=== PATIENT | female | born 1985 | race Caucasian/White ===

== ENCOUNTER 2020-10-21 17:50 | Emergency (ER) | payer OTHER ==
[2020-10-21 18:07] VITALS: BP 169/103
--- NOTE | 2020-10-21 18:13 | ED Physician Documentation ---
PD HPI Fall - Stated complaint Stated Complaint: FELL DOWN STAIRS/HEAD PX/LT LEG PX - Chief complaint Chief Complaint: Ext Problem - History obtained from History obtained from: Patient - History of Present Illness Mechanism of injury: Slipped Fall distance: Standing position Where injury occurred: Home (slipped on step and fell forward, stiking left knee on edge of step and left ankle on another, with some twist of ankle as well. Pain with ROM and with walking, but able to walk some.) Injury(ies) location: Left Lower Extremity. No: Head, Neck, Chest, Abdomen Associated symptoms: No: LOC, AMS, Nausea / vomiting Worsens with: Movement, Palpation Similar symptoms before: Has not had sx before Recently seen: Not recently seen Review of Systems Constitutional: denies: Fever Nose: denies: Rhinorrhea / runny nose, Congestion Throat: denies: Sore throat Respiratory: denies: Cough Skin: denies: Abrasion (s), Laceration (s) Musculoskeletal: denies: Neck pain, Back pain PD PAST MEDICAL HISTORY - Past Medical History Cardiovascular: None Respiratory: None Endocrine/Autoimmune: None - Past Surgical History Past Surgical History: No - Present Medications Home Medications: Ambulatory Orders Medication Instructions Recorded Confirmed Oxycodone HCl/Acetaminophen 1 each PO Q6H PRN #14 tablet 10/21/20 [Percocet 5-325 mg Tablet] - Allergies Allergies/Adverse Reactions: Allergies Allergy/AdvReac Type Severity Reaction Status Date / Time acetaminophen [From Vicodin] AdvReac Unknown Verified 10/21/20 18:07 hydrocodone bitartrate * AdvReac Unknown Verified 10/21/20 18:07 [From Vicodin] - Social History Does the pt smoke?: No Smoking Status: Never smoker Does the pt drink ETOH?: No Does the pt have substance abuse?: No PD ED PE NORMAL - Vitals Vital signs reviewed: Yes - General General: Alert and oriented X 3, No acute distress, Well developed/nourished - Back Back: No spinal TTP - Derm Derm: Normal color, Warm and dry - Extremities Extremities: Other (left knee with mild anterior effusion. NO noted deformity. Able to extend at knee but hurts. No noted laxity nor pain with collateral/cruciate testing. Left ankle tender laterally at malleolus and below. No effusion. ) - Neuro Neuro: Alert and oriented X 3, No motor deficit, No sensory deficit, Normal speech Results - Vitals Vitals: Vital Signs - 24 hr 10/21/20 17:57 Temperature 36.4 C L Heart Rate 90 Respiratory 16 Rate Blood Pressure 169/103 H O2 Saturation 99 Oxygen O2 Source Room air - Rads (name of study) left ankle Radiology: Prelim report reviewed (no osseous abnormality), See rad report left knee Radiology: Prelim report reviewed (no osseous abnormality), See rad report PD MEDICAL DECISION MAKING - ED course Complexity details: reviewed old records ([facility] due to ADHD meds. No regular opioids.), considered differential, d/w patient Departure - Departure Disposition: 01 Home, Self Care Clinical Impression: Knee effusion, left Fall from slip, trip, or stumble Qualifiers: Encounter type: initial encounter Qualified Code(s): W01.0XXA - Fall on same level from slipping, tripping and stumbling without subsequent striking against object, initial encounter Knee contusion Qualifiers: Encounter type: initial encounter Laterality: left Qualified Code(s): S80.02XA - Contusion of left knee, initial encounter Ankle sprain Qualifiers: Encounter type: initial encounter Involved ligament of ankle: unspecified ligament Laterality: left Qualified Code(s): S93.402A - Sprain of unspecified ligament of left ankle, initial encounter Condition: Stable Record reviewed to determine appropriate education?: Yes Instructions: ED Contusion Lower Ext, ED Sprain Ankle Follow-Up: Teodoro Loza DO [Primary Care Provider] - Prescriptions: Oxycodone HCl/Acetaminophen [Percocet 5-325 mg Tablet] 1 each PO Q6H PRN #14 tablet PRN Reason: pain Comments: Your x-rays appear normal without any signs of fractures of the knee or ankle. You do have the swelling in the knee from the contusion in this will likely take several days to decrease. Use the knee brace for support and limited range of motion for several days to week as needed. Use ankle brace as well in the similar timeframe. I do not feel there is any significant ligament injuries per se of the knee or ankle so he can discontinue the splint and brace when they are not feeling needed anymore. Use some ibuprofen 600 mg 3 times a day with food for the next several days to week. To that add Tylenol or pain medicine if needed. Recheck if not improved well over the next week timeframe. Discharge Date/Time: 10/21/20 20:02
[2020-10-21] MEDS ORDERED: oxyCODONE 5 MG TABLET PO STA (18:34)
--- NOTE | 2020-10-21 19:28 | XRAY Report ---
PROCEDURE: Ankle 3 View LT INDICATIONS: fell few steps - ankle/knee pain TECHNIQUE: 3 views of the ankle were acquired. COMPARISON: None. FINDINGS: Bones: No fractures or dislocations. Ankle mortise is normally aligned. No suspicious bony lesions . Calcaneal spurring. Soft tissues: No tibiotalar joint effusion. Achilles tendon appears normal. IMPRESSION: No acute osseous amenities. Reviewed by: Nereida Deshpande MD on 10/21/2020 7:27 PM PST Approved by: Nereida Deshpande MD on 10/21/2020 7:27 PM PST Station ID: [id number]
--- NOTE | 2020-10-21 19:29 | XRAY Report ---
PROCEDURE: Knee 3 View LT INDICATIONS: fell few steps - ankle/knee pain TECHNIQUE: 3 views of the left knee(s) were acquired. COMPARISON: None. FINDINGS: Bones: No fractures or dislocations. No suspicious bony lesions. Soft tissues: No joint effusion. No suspicious soft tissue calcifications. IMPRESSION: No acute osseous abnormalities. Reviewed by: Nereida Deshpande MD on 10/21/2020 7:28 PM PST Approved by: Nereida Deshpande MD on 10/21/2020 7:28 PM PST Station ID: [id number]
== END 2020-10-21 20:02 | disposition home or self-care (01) ==
LOC: ED 17:50
DX: S93.402A Sprain of unspecified ligament of left ankle, initial encounter (principal); S80.02XA Contusion of left knee, initial encounter; W10.9XXA Fall (on) (from) unspecified stairs and steps, initial encounter; Y93.01 Activity, walking, marching and hiking; Y92.009 Unspecified place in unspecified non-institutional (private) residence as the place of occurrence of the external cause
CPT/HCPCS: 73562; 73610; 99283; A9270

== ENCOUNTER 2021-01-08 11:50 | Outpatient (CLI) | payer OTHER ==
--- NOTE | 2021-01-08 13:03 | Ultrasound Report ---
PROCEDURE: Ext Limited Non Vascular INDICATIONS: BILAT KNEE PAIN - RICKETTS'S CYST TECHNIQUE: Real-time scanning was performed of the bilateral knees, with image documentation. COMPARISON: None. FINDINGS: Right knee: There is a small popliteal fossa region cyst measuring 10 x 6 x 7 mm. There is no left popliteal cyst. There is a small right knee joint effusion. IMPRESSION: 1. Small Ricketts's cyst, posterior right knee. 2. Small right knee joint effusion. 3. No left knee Ricketts's cyst noted. Reviewed by: Jared De La Rosa MD on 01/08/2021 12:02 PM [facility] Approved by: Jared De La Rosa MD on 01/08/2021 12:02 PM [facility] Station ID: [id number]
--- NOTE | 2021-01-08 13:04 | Ultrasound Report ---
PROCEDURE: Ext Limited Non Vascular INDICATIONS: BILAT KNEE PAIN - RICKETTS'S CYST TECHNIQUE: Real-time scanning was performed of the bilateral knees, with image documentation. COMPARISON: None. FINDINGS: Right knee: There is a small popliteal fossa region cyst measuring 10 x 6 x 7 mm. There is no left popliteal cyst. There is a small right knee joint effusion. IMPRESSION: 1. Small Ricketts's cyst, posterior right knee. 2. Small right knee joint effusion. 3. No left knee Ricketts's cyst noted. Reviewed by: Jared De La Rosa MD on 01/08/2021 12:02 PM [facility] Approved by: Jared De La Rosa MD on 01/08/2021 12:02 PM [facility] Station ID: [id number]
== END 2021-01-08 11:51 | disposition home or self-care (01) ==
LOC: DI 11:50
PROVIDERS: ATTEND Family Medicine
DX: M71.21 Synovial cyst of popliteal space [Baker], right knee (principal); M25.461 Effusion, right knee

== ENCOUNTER 2024-02-15 10:19 | Outpatient (CLI) | payer OTHER ==
--- NOTE | 2024-02-15 10:57 | Sleep Patient Instructions ---
Sleep Center Visit Summary - Patient Visit Information Reason for Visit: Initial consult for evaluation of sleep disordered breathing and other sleep issues. - Patient Instructions Instructions Attached: Sleep Study Home Monitor Additional Instructions: You will be completing a sleep study, either an in-lab polysomnography (PSG) or home sleep study (HST). You will follow-up in the sleep care office after the sleep study is completed to hear the results and talk about therapy, if needed. You will be called by our office staff to schedule this appointment, but you may contact us with any questions. - Clinic Information Contact: [facility] [address] [place] [address] [email or web address] T: [phone]
--- NOTE | 2024-02-15 10:58 | SLEEP CARE CONSULTATION ---
Information from patient questionnaire entered by Troy Montano. I have reviewed and concur with the information entered by Troy Montano. This document represents the service I personally performed and the decisions made by me, Cheri Posada ARNP. History of Present Illness Service Date and Time: 02/15/2024 1019 Reason for Visit: New patient Chief Complaint: reports: Insomnia, Unrefreshed sleep, Excessive daytime sleepiness, Fatigue Date of Onset: Several years Usual bedtime: 9 - 10 Time it takes to fall asleep: 30 - 45 mins Snores at night: Yes (sometimes, bob when congested) Observed to quit breathing while asleep: No Sleeps alone due to snoring: No Number of times waking at night: 2 - 3 times Reasons for waking at night: reports: Pain, Other (Unknown reason). denies: Choking, Gasping for air (has woke up short of breath associated with nightmares) Toss, Turn, or Twitch while sleeping: Yes Recalls having dreams: Yes (Sometimes) Usually gets out of bed at: 4 AM; 4-6 AM on weekends Feels refreshed in the morning: No Morning headache: Yes (5 days week; Usually resovles after taking tylenol about mid-morning) Sleepy or fatigued during the day: Yes Ever fallen asleep while driving: Yes (drowsy driving, no accidents) Takes day naps: Yes Dreams during day naps: No Prior sleep studies: No Additional HPI information: I had the pleasure of seeing BERNIE MOSCOSO today regarding the possibility of her having a sleep disorder. Her current complaints are unrefreshed sleep, insomnia, fatigue and excessive daytime sleepiness. Her primary recommended evaluation because of multiple family members who have sleep apnea. She has history of depression, hypertension, ADHD and anxiety. She says due to stress in her life in last 12 pounds she gained over a hundred pounds but has lost 45-50 pounds since starting with a new provider. She says she feels like she does not get into a deep sleep. She wakes up feeling exhausted. She will wake up with headaches and has been treated for migraines. She is taking OTC analgesics and the headaches will last until noon. She will fall asleep in car during her lunch period but wakes up more tired than before the nap. 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 Patient is and lives in [place]. Have you smoked in the past 12 months: No (Vape but not smoking cigarettes) Cigarettes per day (20/pack): 5 Years of smokin Quit date: 2008 Smoking Pack Years: 3.0 Alcohol use: Yes Alcohol amount and frequency: 1 glass every now and then Caffeine use: Yes Caffeine amount and frequency: 2 - 3 cups daily Family History Family history of sleep disordered breathing: Yes Family Hx Sleep Apnea: Father: Snoring, Sleep apnea - Treated (Uncles and aunts), Sibling: Snoring, Sleep apnea - Treated, Grandparent: Snoring, Sleep apnea - Treated, Other: Sleep apnea - Treated Allergies and Home Medications Known drug allergies: Yes (as listed) Drug allergies reviewed: Yes Home medication list reviewed: Yes (as listed) Allergy and home medication list: Allergies acetaminophen [From Vicodin] Adverse Reaction Unknown hydrocodone bitartrate * [From Vicodin] Adverse Reaction Unknown Home Medications Medication Instructions Recorded Confirmed Last Taken Type Kiki-D 12 Hour Tablet See Rx Instructions .ROUTE .COMPLEX 02/15/24 02/15/24 Unknown History Flonase See Rx Instructions .ROUTE .COMPLEX 02/15/24 02/15/24 Unknown History Multivitamin See Rx Instructions .ROUTE .COMPLEX 02/15/24 02/15/24 Unknown History Nasacort See Rx Instructions .ROUTE .COMPLEX 02/15/24 02/15/24 Unknown History Sertraline HCl 100 mg ORAL DAILY 02/15/24 02/15/24 Unknown History Review of Systems Weight loss over past 5 years: 50 Cardiovascular: reports: leg or foot swelling. denies: high blood pressure Respiratory: reports: shortness of breath Gastrointestinal: denies: heartburn Neurological: reports: headaches, gait or balance problems Psychiatric: reports: Attention Deficit Hyperactivity, anxiety, depression Ear/Nose/Throat: reports: nasal congestion, sinus problems, dry mouth/throat, wisdom teeth removed. denies: tonsillectomy Endocrine: reports: sluggishness (/tired), too hot or cold, excessive thirst, increased appetite, unexplained weakness Musculoskeletal: reports: joint pain (/stiffness), neck pain, back pain, muscle pain or cramping Immunologic: reports: sneezing (/runny nose), allergies to food or environment (environment) Physical Exam Vital signs obtained and entered by: Cheri Daily NP Blood Pressure: 152/97 Cuff size: long (right arm) Heart Rate: 79 O2 Saturation: 96 Height: 5 ft 7 in Weight: 247 lb 12.8 oz Body Mass Index: 38.8 BMI Classification: Obese Neck circumference: 16.5 (inches) Nostrils: patent to airflow Mouth and throat: narrow oropharynx Soft palate: long Hard palate: normal Uvula: normal Uvula visualization: 25% Mallampati Class III Tongue: enlarged in size with teeth epps on lateral edges Tonsils: 1+ Neck: normal w/o lymphadenopathy or thyromegaly Heart: regular rate and rhythm Lungs: clear bilaterally Impression and Plan 1. Suspected Obstructive Sleep Apnea-Hypopnea Syndrome, as suggested by a history of loud and irregular snoring, morning headache, unrefreshed sleep, cognitive impairment, and excessive daytime sleepiness. Narrow oropharynx and obesity are common predisposing factors for obstructive sleep apnea-hypopnea syndrome. I recommend proceeding to polysomnography to confirm the diagnosis and to assess severity. If the patient has significant sleep disordered breathing, a manual CPAP titration study will also be performed to find the optimal treatment pressure. I informed the patient of what the sleep studies involve and after some discussion, obtained agreement to proceed. The pathophysiology of obstructive sleep apnea-hypopnea syndrome was discussed with the patient and health risks of cardiovascular and cerebrovascular disease if not treated. Risks of drowsy driving discussed in detail and patient advised to avoid long distance driving and to lung puller at the first sign of drowsiness. Patient agreed to plan. * Schedule polysomnography. * Avoid long distance driving or driving when feeling sleepy. * Avoid alcohol, sedative and muscle relaxant around bedtime. * Attempt to lose weight. * Review instructions provided by trained office staff on how to prepare for the sleep study. * Return for follow-up after sleep study completed. Counseling Topics: Weight loss health impact Plan: HST Visit Type: In Office Time Spent with Patient (minutes): 31 Provider Statement: I spent 100% of the Face to Face Visit with the patient with greater than 50% spent counseling the patient and coordination of care.
[2024-02-15 10:59] VITALS: BP 152/97; O2SAT 96
== END 2024-02-15 10:20 | disposition home or self-care (01) ==
LOC: SC 10:19
PROVIDERS: ATTEND Nurse Practitioner Family
DX: R06.83 Snoring (principal); G47.8 Other sleep disorders; R41.89 Other symptoms and signs involving cognitive functions and awareness; G47.10 Hypersomnia, unspecified; G47.00 Insomnia, unspecified; E66.9 Obesity, unspecified; Z68.38 Body mass index [BMI] 38.0-38.9, adult; F17.290 Nicotine dependence, other tobacco product, uncomplicated
CPT/HCPCS: 99203; 99212

== ENCOUNTER 2024-03-05 08:23 | Outpatient (CLI) | payer OTHER | END 2024-03-05 08:24 | disposition home or self-care (01) | LOC: SC 08:23 | PROVIDERS: ATTEND Nurse Practitioner Family | DX: G47.33 Obstructive sleep apnea (adult) (pediatric) (principal); R09.02 Hypoxemia; I10 Essential (primary) hypertension; F32.A Depression, unspecified | CPT/HCPCS: 95806 ==

== ENCOUNTER 2024-03-22 10:57 | Outpatient (CLI) | payer OTHER ==
[2024-03-22 20:10] LABS: BASOPHILS # (AUTO) 0.1 10^3/uL (0.0-0.1); BASOPHILS % (AUTO) 0.7 %; EOSINOPHILS # (AUTO) 0.2 10^3/uL (0.0-0.7); EOSINOPHILS % (AUTO) 2.8 %; HCT - HEMATOCRIT 44.2 % (37.0-47.0); HGB - HEMOGLOBIN 13.6 g/dL (12.0-16.0); LYMPHOCYTES # (AUTO) 1.5 10^3/uL (1.5-3.5); LYMPHOCYTES % (AUTO) 20.9 %; MEAN CORPUSCULAR HEMOGLOBIN 27.4 pg (27.0-31.0); MEAN CORPUSCULAR HGB CONC 30.8 g/dL (32.0-36.0); MEAN CORPUSCULAR VOLUME 88.9 fL (81.0-99.0); MEAN PLATELET VOLUME 10.9 fL (7.9-10.8); MONOCYTES # (AUTO) 0.5 10^3/uL (0.0-1.0); MONOCYTES % (AUTO) 7.5 %; NEUTROPHILS # (AUTO) 4.9 10^3/uL (1.5-6.6); NEUTROPHILS % (AUTO) 67.5 %; PLT - PLATELET COUNT 304 10^3/uL (130-450); RED BLOOD COUNT 4.97 10^6/uL (4.20-5.40); RED CELL DISTRIBUTION WIDTH 13.5 % (12.0-15.0); WHITE BLOOD COUNT 7.2 x10^3/uL (4.8-10.8)
[2024-03-22 20:18] LABS: HCG UR QUAL NEGATIVE
== END 2024-03-22 10:58 | disposition home or self-care (01) ==
LOC: LAB.N 10:57
PROVIDERS: ATTEND Obstetrics & Gynecology
DX: Z01.812 Encounter for preprocedural laboratory examination (principal); N93.9 Abnormal uterine and vaginal bleeding, unspecified
CPT/HCPCS: 36415; 81025; 85025